=== PATIENT | female | born 1940 | race Asian ===

== ENCOUNTER 2024-08-11 10:31 | Inpatient (IN) | payer MEDICARE, OTHER, SELFPAY ==
[2024-08-10 19:00] VITALS: BP 98/59
[2024-08-10 21:07] LABS: Glucose - Point of Care 187 mg/dl (70-99)
[2024-08-10] MEDS: TYLENOL 650 MG PO (21:53)
--- NOTE | 2024-08-10 22:10 | ED.GENMED ---
History of Present Illness
General
Chief Complaint: Fall
Source: patient and family
Exam Limitations: none
Time Seen by Provider: 08/10/24 21:55
Nursing documentation reviewed up to this point in time: agreed with
History of Present Illness
History of Present Illness:
83-year-old female past medical history of hypertension hyperlipidemia presenting to the emergency department today after mechanical fall landing on the right knee unable to walk since this occurred just prior to arrival. Denies any additional
trauma or injuries.
Past History
Past History
ED Past Medical History: Cancer (colon cancer)
ED Past Surgical History: Bowel resection
Social History
Tobacco: Non-smoker
Alcohol: None
Drug: None
Living: with family
Employment: Retired
Review of Systems
Review of Systems
Allergies reviewed?: Yes
All Other Systems: ROS reviewed and negative except as documented in HPI and ROS
Phy Exam
Physical Exam
Physical Exam:
GENERAL: Alert , in no apparent distress
EYE: pupils equal and reactive
NECK: Supple, no significant adenopathy.
ENT: o/p clr, mmm.
CARDIAC: Regular rate and rhythm .
LUNGS: Clear breath sounds bilaterally, no acute respiratory distress, no wheezes/rales/rhonchi
ABDOMEN: Soft, without focal tenderness, no r/g, no cvat
NEUROLOGICAL: Alert and oriented, no focal neuro deficits
SKIN: Warm and dry, skin intact.
MUSCULOSKELETAL: Swelling and significant discomfort to the area of the infrapatellar region anteriorly. Increased discomfort any movement of the knee. No tenderness to the hip, pelvis. Mild tenderness to the foot and ankle but good range of
motion otherwise. Well perfused.
PSYCH: Normal and appropriate interaction.
Course
Orders/Labs/Results
Orders:
Orders
08/10/24 19:01
CR Knee- Right 4 Or More View* Urgent
Comment:
Reason For Exam: FALL
Foot, Right 3 View [CR Foot - Right Min 3 Views] Urgent
Comment:
Reason For Exam: FALL
08/10/24 21:51
Acetaminophen [Tylenol] 650 mg .ROUTE .STK-MED ONE
08/10/24 21:52
Acetaminophen [Tylenol] 650 mg PO NOW STA
08/10/24 22:10
BMP [Basic Metabolic Panel] Urgent
CBC/With Diff [Complete Blood Count/With Diff] Urgent
08/10/24 22:20
CT Lower Ext W/o Iv Cont Rt Urgent
Comment:
Reason For Exam: right tibia fx,
Knee Immobilizer Right-Treatme ONCE
Abnormal Lab Results
08/10/24
21:05
POC Glucose 187 H mg/dl
(70-99)
Vital Signs
Initial and Last Documented VS:
Initial Vital Signs
Temp Pulse Resp BP Pulse Ox
98.1 F 65 19 98/59 97
08/10/24 19:00 08/10/24 19:00 08/10/24 19:00 08/10/24 19:00 08/10/24 19:00
Last Documented Vital Signs
Temp Pulse Resp BP Pulse Ox
98.1 F 65 19 98/59 97
08/10/24 19:00 08/10/24 19:00 08/10/24 19:00 08/10/24 19:00 08/10/24 19:00
MDM/Problems Addressed
MDM/Problems Addressed:
83-year-old female presenting to the emergency department today with concerns of right-sided knee pain after mechanical fall prior to arrival. Unable to ambulate since. Neuro vastly intact on examination foot x-ray performed without evidence of
fracture knee x-ray showing proximal tibial fracture. Case discussed with orthopedics recommending CT scan that did not show any extension into the articular surface. Otherwise patient will need to be admitted for further management.
*Critical Care Note
Total Time (30-74mins, 75-104mins- exclusive of procedures): Not Applicable
ED Attending Note
-
Portions of this chart may have been created with voice recognition software.� Occasional wrong word or��sound alike� substitutions may have occurred due to the inherent limitations of voice recognition software.
Discharge Plan
Departure
Patient Disposition: Admit
Date of Disposition: 08/10/24
Time of Disposition: 23:00
Admit to: Med/Surg
Admit to doctor: Ramon
Presentation/result/management discussed w/ accepting MD/DO: Hospitalist
Patient with high blood pressure during this ER visit?: No
Condition: Good
Covid-19: Not Applicable
Discharge Problem:
Fracture of proximal end of left tibia
Prescriptions:
No Action
aspirin 81 MG tablet,delayed release (DR/EC)
81 mg PO DAILY
oxycodone-acetaminophen 5 MG/325 MG tablet
2 tab PO Q6HPRN PRN (Reason: pain)
carbamide peroxide [Ear Drops (carbamide peroxide)] 1 DROP drops
1 drp otic (ear) DAILY
ranitidine HCl [Taladine] 150 MG capsule
150 mg PO BID
calcium carbonate-vitamin D3 1 EACH tablet
1 tab PO DAILY
labetalol 200 MG tablet
200 mg PO BID Qty: 60 0RF
insulin glargine [Lantus U-100 Insulin] 1,000 UNITS/10 ML solution
15 units SC HS 0RF
torsemide 20 MG tablet
40 mg PO BID@0800,1600 Qty: 120 0RF
polyethylene glycol 3350 17 GRAMS powder in packet
17 grams PO BID 0RF
metolazone 5 MG tablet
2.5 mg PO MoWeFr@0800 Qty: 30 0RF
potassium chloride [Klor-Con M20] 20 MEQ tablet,ER particles/crystals
20 meq PO BID Qty: 60 0RF
pantoprazole 40 MG tablet,delayed release (DR/EC)
40 mg PO DAILY Qty: 30 0RF
diltiazem HCl 120 MG capsule,extended release 24hr
120 mg PO BID Qty: 60 0RF
hydralazine 50 MG tablet
100 mg PO BID Qty: 120 0RF
gabapentin 100 MG capsule
200 mg PO DAILY Qty: 30 0RF
dicyclomine 10 MG capsule
10 mg PO BID@0800,1700 Qty: 60 0RF
insulin aspart U-100 [Novolog FlexPen U-100 Insulin] 300 UNITS/3 ML insulin pen
3 units SC AC Qty: 0 0RF
daptomycin 500 MG/10 ML recon soln
400 mg IV Q48H Qty: 10 0RF
Rx Instructions:
Through 06/22
clopidogrel 75 MG tablet
75 mg PO DAILY Qty: 30 0RF
Referrals:
Cuba Wise MD [Family Provider] -
Interventions
Interventions:
*Risk Screen - Suicide Last Done: 08/10/24 19:00
*General Assessment Last Done: 08/10/24 19:00
*Neglect/Abuse Screening Last Done: 08/10/24 19:00
ED- Fall Risk Assessment Last Done: 08/10/24 20:53
ED-Musculoskeletal Assessment Last Done: 08/10/24 20:53
ED- Neurological Assessment Last Done: 08/10/24 20:53
Discharge Date and Time
Print Language: GREEK
[2024-08-10 22:57] LABS: % Basophils 0.1 % (0-2); % Eosinophils 0.8 % (0-6); % Immature Granulocytes 0.3 % (0-0.5); % Lymphocytes 12.7 % (20.5-51.1); % Monocytes 5.7 % (1.7-9.3); % Neutrophils 80.4 % (42.2-75.2); Absolute Eosinophils 0.1 10^3/uL (0-0.7); Absolute Lymphocytes 1.2 10^3/uL (1.2-3.4); Absolute Monocytes 0.5 10^3/uL (0.1-0.6); Absolute Neutrophils 7.7 10^3/uL (1.4-6.5); Hematocrit 29.4 % (37.0-47.0); Hemoglobin 9.8 g/dL (12.0-16.0); Mean Corp Hgb Conc. 33.3 g/dL (33.0-37.0); Mean Corpuscular Hgb 30.2 pg (27.0-31.0); Mean Corpuscular Volume 90.5 fL (81.0-99.0); Mean Platelet Volume 10.1 fL (7.4-10.4); Nucleated Red Blood Cells % 0 %; Platelet Count 182 10^3/uL (130-400); Red Blood Cell Count 3.25 10^6/uL (4.20-5.40); Red Cell Dist. Width 14.7 % (11.5-14.5); White Blood Cell Count 9.6 10^3/uL (4.8-10.8)
[2024-08-10 23:09] LABS: Blood Urea Nitrogen 55 mg/dl (7-17); Calcium 9.8 mg/dl (8.4-10.2); Carbon Dioxide 27 mmol/L (22-30); Chloride 105 mmol/L (98-107); Glucose 171 mg/dl (70-99); Potassium 4.4 mmol/L (3.5-5.1); Sodium 141 mmol/L (135-145)
--- NOTE | 2024-08-10 23:28 | HPS.HSE ---
Family Physician
-
Family Physician: Cuba Wise
Chief Complaint
-
Status post fall, left tibial fracture
History of Present Illness
This is a 83-year-old female with past medical history of insulin-dependent diabetes, PAD hypertension, CKD, hyperlipidemia who has mild ambulatory dysfunction at baseline presents to the emergency department after a mechanical fall.
She apparently was standing and trying to turn around without assist when she had pain in the knee and then went down. She essentially fell onto her right knee and was unable to ambulate afterwards. She did not strike her head. She had no
lightheadedness or dizziness. She had no confusion. She is on aspirin and Plavix for peripheral vascular disease.
In the emergency department blood pressure was 100/50 with a pulse of 65 satting 97% on room air. CBC was unremarkable. Electrolytes BUN/creatinine were at baseline. Slightly comminuted and mildly displaced fracture of the proximal tibia
involving the tibial tubercle with fracture lines extending to the medial tibial metaphysis and to the lateral epiphysis anteriorly and posteriorly with surrounding soft tissue edema.
ED d/w Ortho, Dr. Rodriges, recommends knee immobilizer.
Medical History
Past Medical History
Past Medical History: Reports Cancer (Colon cancer status post bowel resection.) and IDDM
Additional Past Medical History:
Peripheral vascular disease
CKD stage IV
Past Surgical History: Reports Bowel Resection
Social History
Tobacco: Non-smoker
Alcohol: None
Drug: None
Personal: Single
Living: With Family
Employment: Retired
Family History
Family History: Not pertinent
Allergies / Home Medications
Allergies reflects when Allergies were last updated in [employer].
Home Medications with original date entered in [employer]
Allergy/Medication List:
Allergies
Allergy/AdvReac Type Severity Reaction Status Date / Time
Latex, Natural Rubber Allergy Itching Verified 05/03/19 21:07
Home Medications
aspirin 81 mg tablet,delayed release 81 mg PO DAILY 05/03/19
calcium 500 mg (as carbonate)-vitamin D3 3.125 mcg (125 unit) tablet 1 tab PO DAILY 05/03/19
carbamide peroxide 6.5 % ear drops (Ear Drops (carbamide peroxide)) 1 drp otic (ear) DAILY 05/03/19
oxycodone-acetaminophen 5 mg-325 mg tablet 2 tab PO Q6HPRN PRN pain 05/03/19
ranitidine HCl 150 mg capsule (Taladine) 150 mg PO BID 05/03/19
clopidogrel 75 mg tablet 75 mg PO DAILY #30 tabs 06/14/19
daptomycin 500 mg intravenous solution 400 mg IV Q48H #10 vials 06/14/19
dicyclomine 10 mg capsule 10 mg PO BID@0800,1700 #60 caps 06/14/19
diltiazem HCl 120 mg capsule,extended release 24 hr 120 mg PO BID #60 caps 06/14/19
gabapentin 100 mg capsule 200 mg (2 x 100 mg) PO DAILY #30 caps 06/14/19
hydralazine 50 mg tablet 100 mg (2 x 50 mg) PO BID #120 tabs 06/14/19
insulin aspart U-100 100 unit/mL (3 mL) subcutaneous pen (Novolog FlexPen U-100 Insulin aspart) 3 units (0.03 mL) SC AC ##0 06/14/19
insulin glargine 100 unit/mL subcutaneous solution (Lantus U-100 Insulin) 15 units (0.15 mL) SC HS 06/14/19
labetalol 200 mg tablet 200 mg PO BID #60 tabs 06/14/19
metolazone 5 mg tablet 2.5 mg (1/2 x 5 mg) PO MoWeFr@0800 #30 tabs 06/14/19
pantoprazole 40 mg tablet,delayed release 40 mg PO DAILY #30 tabs 06/14/19
polyethylene glycol 3350 17 gram oral powder packet 17 grams PO BID 06/14/19
potassium chloride 20 mEq tablet,extended release(part/cryst) (Klor-Con M) 20 meq PO BID #60 tabs 06/14/19
torsemide 20 mg tablet 40 mg (2 x 20 mg) PO BID@0800,1600 #120 tabs 06/14/19
Review of Systems
-
History Source: Family
Constitutional: Reports No Symptoms
EENT: Reports No Symptoms
Respiratory: Reports No Symptoms
Cardiac: Reports No Symptoms
Abdomen/GI: Reports No Symptoms
: Reports No Symptoms
Musculoskeletal: Reports Joint Pain and Joint Swelling
Skin: Reports No Symptoms
Neurological: Reports No Symptoms
Hematologic/Lymphatic: Reports No Symptoms
Psych: Reports No Symptoms
Physical Exam
Vital Signs
Vital Signs
Temp Pulse Resp BP Pulse Ox
98.1 F 65 19 98/59 97
08/10/24 19:00 08/10/24 19:00 08/10/24 19:00 08/10/24 19:00 08/10/24 19:00
Physical Exam
General: Well Developed, Well Nourished and Pain
HEENT: NormoCephalic, Anicteric, Moist mucous membranes and Atraumatic
Respiratory: Clear
Cardiac: S1/S2 and Regular Rhythm
Breast: Deferred by me
GI: Soft, Non Tender, Non Distended and Normal Bowel Sounds
Rectal: Deferred by Provider
Genito-urinary: Deferred by me
Musculoskeletal: No Clubbing, No Cyanosis, Edema, Right Lower Extremity and Other (Right knee swelling, erythema and tenderness.)
Skin: Warm
Neuro: AO x 3
Hematologic/Lymphatic: No Lymphadenopathy
Psych: Calm
Laboratory Results
-
08/10/24 22:45
08/10/24 22:45
Data Reviewed
-
CT Scan: Report Reviewed by me
Lab Data: Labs Reviewed by me
Old Records: Reviewed
Impression/Plan
-
IMPRESSION:
Fall from standing height onto the right knee with subsequent right tibial fracture, minimally displaced. Not a surgical case.
PLAN:
1. Fracture
- admit to med/surg
- pain control and antiemetics
- knee immobilizer
- PT evaluation
- DVT PPX
2. DM II - recent weight loss on minimal insulin
- lantus 6 hs (8 at home)
- sliding scale insulin coverage
- continue jardiance
3. CKD - Creatinine slightly worse compared to last test but comparable to priors.
- monitor for now
- continue arb
- no diuretics
4. HTN
- bp meds with hold parameters
DVT PPX - SCD on left leg
Code Status - Full Code
[2024-08-11] VITALS (22 sets, daily range): BP systolic 128–202; BP diastolic 46–82; PULSE 57; BMI 25.5
[2024-08-11] MEDS: TYLENOL PO ×2 (01:15→04:01)
--- NOTE | 2024-08-11 03:37 | DOWNTIME ---
There was a [employer] Client Lamina Searcher Downtime on 08/11/2024 from 0200 to 08/11/2024 at 0325 . Downtime documentation of patient's care, including medication administrations, has been reconciled in the electronic record per guidelines. Refer to the
patient's paper chart under the miscellaneous tab to see printed paper medication records and downtime forms.
[2024-08-11] MEDS: NORVASC 5 MG PO ×2 (07:01→19:45)
[2024-08-11] MEDS: PEPCID 20 MG PO (07:02)
[2024-08-11] MEDS: PROTONIX 40 MG PO (07:02)
[2024-08-11] MEDS: PLAVIX 75 MG PO (07:02)
[2024-08-11 07:24] LABS: Glucose - Point of Care 148 mg/dl (70-99)
[2024-08-11] MEDS: NOVOLOG FLEXPEN-LOW RESISTANCE SC (07:32)
[2024-08-11] MEDS: TYLENOL 650 MG PO ×5 (08:13→23:11)
[2024-08-11] MEDS: APRESOLINE 25 MG PO ×2 (08:14→19:44)
[2024-08-11] MEDS: FEOSOL 325 MG PO ×2 (08:14→19:45)
[2024-08-11] MEDS: COZAAR 50 MG PO ×2 (08:15→19:44)
--- NOTE | 2024-08-11 09:12 | W.PN.HOSP.TC ---
Today's Communication/Plan
-
PT evaluation
Ortho evaluation
Rehab placement
Assessment / Plan
Assessment / Plan
Used language line iPad rnp [id number]
83-year-old female presented to the hospital with kneeling down, on twisting per daughter. . She stated that she usually has generalized weakness of her knees and then went down. Denies any chest pain, shortness of breath or palpitations.
On examination awake alert and comfortable
Cardiovascular system S1-S2 appreciated. ssm at apx
Chest clear to auscultation
Abdomen soft and nontender
Lumbar area-mild tenderness with palpation
Right lower extremity on an immobilizer
No pedal edema
Neurovascular checks of the bilateral feet are stable
CT-proximal right tibia fracture with lines extending to the medial tibial metaphysis and to the lateral epiphysis anteriorly and posteriorly.
# Proximal tibia fracture-likely traumatic and osteoporotic
Orthopedic evaluation
Nonsurgical management per report
Raloxifene as outpatient
Pain control
PT evaluation
# Multidrug-resistant hypertension-continue amlodipine, hydralazine 25 mg twice daily, labetalol 1 mg daily, losartan 50 mg twice daily, torsemide 10 mg every 48 hours
# Hyperlipidemia-continue statin
# Anemia-likely secondary to CKD. Continue p.o. iron.
# Diabetes-continue Jardiance Lantus 5 to 7 units at night and NovoLog insulin 2-4 units at night as home meds continue Lantus, Jardiance and sliding scale here.
# CKD stage III-continue Jardiance.
# History of colon cancer with surgery in 2008 at [place].
# History of Hepatitis C status posttreatment.
# Dementia- ( ST Memory loss per daughter) Continue Aricept.
# Peripheral vascular disease-with history of prior stents. Stent placed in 2 stets in left leg [place] 2018-continue cilostazol, Plavix and statin
# Neuropathy - Diabetic- Duloxetine.
# Glaucoma
# DVT prophylaxis-subcutaneous heparin
# Full code
Spoke to daughter and updated. She is hoping that patient will go to rehab.
She also stated that patient would not eat a diabetic diet therefore changed to regular diet-2 g sodium. I also discussed with her that if sugars go up I may have to change back to diabetic diet.
Anticipated Discharge: Within 24 hours
Subjective/Interval History
-
Date of Service: August 11, 2024
Objective Data
-
Labs:
Laboratory Results
08/10/24
22:45
WBC 9.6
Hgb 9.8 L
Hct 29.4 L
Plt Count 182
Sodium 141
Potassium 4.4
Chloride 105
Carbon Dioxide 27
BUN 55 H
Creatinine 1.9 H
Glucose 171 H
Calcium 9.8
Vital Signs:
Vital Signs
Temp Pulse Resp BP Pulse Ox
98.1 F 66 21 197/51 100
08/10/24 19:00 08/11/24 07:01 08/11/24 06:15 08/11/24 07:01 08/11/24 03:30
[2024-08-11] MEDS: PLETAL 50 MG PO ×2 (10:06→19:45)
[2024-08-11] MEDS: TRANDATE 100 MG PO (10:06)
[2024-08-11] MEDS: FARXIGA 10 MG PO (10:06)
[2024-08-11] MEDS: COLACE PO (11:04)
[2024-08-11] MEDS: SENOKOT PO (11:04)
[2024-08-11] MEDS: MIRALAX PO (11:04)
[2024-08-11 12:04] LABS: Glucose - Point of Care 340 mg/dl (70-99)
--- NOTE | 2024-08-11 12:20 | CM ---
Patient is now inpatient. IMM not given yet.
--- NOTE | 2024-08-11 12:36 | CM ---
CM reviewed chart. Patient here after a fall. A video veterinarian laboratory animal care, for [place], was used. ID# [id number]. Name: Kim. Patient lives at home with her daughter in [facility]. She does not drive, daughter provides transportation. She needs assistance
with walking. She owns a cane and walker. 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 She denies any +SDOHs. She has an active PCP and pharmacy. Patient was initially obervations. MILLER form was explained to patient. She verbalized understanding and signed form. A
copy was given to her.
ANTICPATED DISCHARGE DISPO: Home with daughter, when medically cleared.
--- NOTE | 2024-08-11 12:42 | W.PN.UPDATE ---
Update Note
Progress Note Update
Patient seen this morning and chart reviewed. Patient apparently does not speak Italian and will discuss with family.
Imaging right knee extra articular tibial metaphyseal fracture, minimal displacement with tuberosity fracture
This is a somewhat unstable fracture pattern and I think would likely benefit from fixation.
I will reach out to the family to discuss surgical vs non surgical treatment
Would keep NWB in [facility] for now.
Formal consult note to follow.
[2024-08-11] MEDS: NOVOLOG FLEXPEN-LOW RESISTANCE 4 UNITS SC (12:57)
[2024-08-11 13:19] LABS: Iron 91 ug/dl (37-170)
[2024-08-11 13:28] LABS: Percent Saturation 37 % (20-50); Total Iron Binding Capacity 242 ug/dl (265-497)
[2024-08-11 13:32] LABS: Vitamin B12 693 pg/ml (239-931)
[2024-08-11 14:28] LABS: Glycohemoglobin (HgbA1c) 7.5 % (4.0-5.6)
[2024-08-11] MEDS: HEPARIN 5000 UNITS SC ×2 (16:34→23:12)
[2024-08-11 17:31] LABS: Glucose - Point of Care 262 mg/dl (70-99)
[2024-08-11] MEDS: NOVOLOG FLEXPEN-LOW RESISTANCE 3 UNITS SC (17:40)
--- NOTE | 2024-08-11 17:58 | CON.ORTHO ---
Consultation - Orthopedics
History
HPI: 83-year-old female presents emergency department after sustaining a fall at home with complaints of right knee pain and inability to bear weight. She was subsequently diagnosed with a right extra-articular proximal tibia metaphyseal fracture
with associated tibial tuberosity fracture. She was admitted to the hospital service and orthopedics was consulted for further evaluation and treatment. Patient is apparently Syriac speaking only and majority of history was taken from chart review
as she was unable to provide meaningful history. Patient reportedly with a history of diabetes hypertension chronic kidney disease. She reportedly uses a combination of a cane a walker at baseline. She does point to her right knee indicating
where she is having pain however.
Allergies / Home Medications
Past medical history: Diabetes, peripheral arterial disease, hypertension, chronic kidney disease, remote history of colon cancer
Past surgical history: Bowel resection
Family history: Not pertinent
Social history: Lives at home with her daughter
Allergy/AdvReac Type Severity Reaction Status Date / Time
Latex, Natural Rubber Allergy Itching Verified 05/03/19 21:07
�Medication �Instructions �Recorded
clopidogrel 75 mg tablet 75 mg PO DAILY #30 tabs 06/14/19
pantoprazole 40 mg tablet,delayed 40 mg PO DAILY #30 tabs 06/14/19
release
amlodipine 5 mg tablet 5 mg PO BID Blood Pressure 08/10/24
ascorbic acid (vitamin C) 500 mg 500 mg PO BID Supplement 08/10/24
tablet (Vitamin C)
calcium 500 mg (as 1 tab PO BID Supplement 08/10/24
carbonate)-vitamin D3 5 mcg (200
unit) tablet (Calcium 500 + D)
cholecalciferol (vitamin D3) 125 125 mcg PO DAILY Supplement 08/10/24
mcg (5,000 unit) tablet (Vitamin
D3)
cilostazol 50 mg tablet 50 mg PO BID peripheral artery 08/10/24
disease
donepezil 5 mg tablet 5 mg PO HS memory/cognition 08/10/24
duloxetine 20 mg capsule,delayed 20 mg PO HS depression/pain 08/10/24
release
empagliflozin 10 mg tablet 10 mg PO DAILY diabetes 08/10/24
(Jardiance)
famotidine 20 mg tablet 20 mg PO BID Gastrointestinal Issue 08/10/24
ferrous sulfate 325 mg (65 mg 325 mg PO BID Supplement 08/10/24
iron) tablet
fluticasone propionate 50 1 spray intranasal DAILYPRN PRN 08/10/24
mcg/actuation nasal congestion
spray,suspension
hydralazine 25 mg tablet 25 mg PO BID Blood Pressure 08/10/24
insulin aspart (niacinamide) 2 - 4 sliding scale dose SC AC 08/10/24
(U-100) 100 unit/mL subcutaneous Diabetes
solution (Fiasp U-100 Insulin)
insulin glargine 100 unit/mL 5 - 7 units SC HS Diabetes 08/10/24
subcutaneous solution (Lantus
U-100 Insulin)
labetalol 100 mg tablet 100 mg PO DAILY Blood Pressure 08/10/24
levocetirizine 5 mg tablet 5 mg PO DAILYPRN PRN allergies 08/10/24
lidocaine 4 % topical patch 1 patch topical DAILYPRN PRN 08/10/24
legs/back
losartan 50 mg tablet 50 mg PO BID Blood Pressure 08/10/24
raloxifene 60 mg tablet 60 mg PO HS osteoporosis 08/10/24
rosuvastatin 5 mg tablet 5 mg PO HS High Cholesterol 08/10/24
torsemide 10 mg tablet 10 mg PO Q48H Fluid 08/10/24
Retention/Swelling
Vital Signs / Lab Results
Temp Pulse Resp BP Pulse Ox
98.3 F 60 18 128/46 96
08/11/24 15:05 08/11/24 15:05 08/11/24 15:05 08/11/24 15:05 08/11/24 15:05
08/10/24 22:45
08/10/24 22:45
10 point review systems reviewed in chart and negative unless otherwise stated
General: Pleasant, no acute distress at rest in bed supine
Musculoskeletal right lower extremity
Knee immobilizer in place
Skin visualized, no erythema or ecchymotic staining, moderate swelling proximal tibia, leg is soft and compressible,
There is actually very minimal palpable knee effusion
Patient is able to actually hold a straight leg raise for me on examination
There is visible grimace and pain with palpation over the tibial tuberosity as well as the proximal tibial metaphyseal region
Patient is able to spontaneously move toes and dorsiflex and plantarflex ankle
Brisk cap refill
Unable to accurately assess sensation
No other areas of bony tenderness palpation or crepitus of long bones and joints and tertiary exam
Diagnostic studies
X-rays of right knee as well as CT scan independently viewed by myself. There is an oblique extra-articular metaphyseal proximal tibia fracture that begins proximal laterally and distal medial. There is an associated mildly displaced tibial
tuberosity fracture
Assessment / Plan
83-year-old female multiple medical comorbidities status post fall with extra-articular proximal tibia metaphyseal fracture with associated tibial tuberosity fracture. Patient is actually able to straight leg raise today and does have an intact
extensor mechanism despite the mildly displaced tibial tuberosity. I was able to call the patient's daughter and had a long discussion on the telephone with her regarding diagnosis and treatment options. We discussed both surgical nonsurgical
options. I did express to the patient that this is likely somewhat of an unstable fracture pattern and I would have concerns about this displacing with conservative treatment. I did discuss this with several trauma colleagues who recommended
consideration of surgical intervention stabilization. We did also discussed nonoperative treatment that would include temporary mobilization and likely casting. Daughter would like to give some thought discussed this with the mother and her family
members. Daughter does report that she does ambulate at baseline at home really without assistive devices although she is supposed to be using a cane or walker typically. She does report that her family physician is concerned about her early
dementia but she feels like her mother has fairly good memory. Again she will discuss this further and probably touch base with her later tonight or tomorrow regarding definitive treatment. Ultimate treatment to be determined including potential
timing of surgery.
Nonweightbearing right lower extremity in knee immobilizer
Pain control
Medical management per primary team
I will touch base with family regarding definitive treatment plan.
Please reach out any questions or concerns
[2024-08-11] MEDS: SENOKOT 17.2 MG PO (19:45)
[2024-08-11] MEDS: COLACE 100 MG PO (19:46)
[2024-08-11 21:08] LABS: Glucose - Point of Care 253 mg/dl (70-99)
[2024-08-11] MEDS: CRESTOR 5 MG PO (21:20)
[2024-08-11] MEDS: EVISTA 60 MG PO (21:20)
[2024-08-11] MEDS: CYMBALTA DELAYED RELEASE 20 MG PO (21:21)
[2024-08-11] MEDS: ZYRTEC 5 MG PO (21:21)
[2024-08-11] MEDS: LANTUS 0.07 UNITS SC (21:21)
[2024-08-11] MEDS: ARICEPT 5 MG PO (21:21)
[2024-08-12] MEDS: TYLENOL PO ×4 (03:05→23:03)
[2024-08-12 07:15] LABS: Hematocrit 27.9 % (37.0-47.0); Hemoglobin 8.9 g/dL (12.0-16.0); Mean Corp Hgb Conc. 31.9 g/dL (33.0-37.0); Mean Corpuscular Hgb 29.8 pg (27.0-31.0); Mean Corpuscular Volume 93.3 fL (81.0-99.0); Mean Platelet Volume 10.2 fL (7.4-10.4); Platelet Count 155 10^3/uL (130-400); Red Blood Cell Count 2.99 10^6/uL (4.20-5.40); White Blood Cell Count 7.6 10^3/uL (4.8-10.8)
[2024-08-12 07:20] VITALS: BP 154/59
[2024-08-12 07:34] LABS: Blood Urea Nitrogen 51 mg/dl (7-17); Calcium 9.4 mg/dl (8.4-10.2); Carbon Dioxide 27 mmol/L (22-30); Chloride 108 mmol/L (98-107); Estimated Creatinine Clearance 19 ml/min; Glucose 163 mg/dl (70-99); Potassium 4.3 mmol/L (3.5-5.1); Sodium 143 mmol/L (135-145); eGFR 27.96
[2024-08-12 09:27] LABS: Glucose - Point of Care 162 mg/dl (70-99)
--- NOTE | 2024-08-12 09:36 | W.PN.UPDATE ---
Update Note
Progress Note Update
Had a long discussion with the patient and daughter at bedside. Manager Customer services were utilized. We had a risks benefits discussion regarding her right proximal tibia fracture. We discussed with surgical nonsurgical options. After discussing
risks benefits alternatives, patient elected to proceed with open reduction internal fixation right proximal tibia metaphyseal fracture in addition to tibial tuberosity fracture. Did obtain verbal consent from both the patient and her daughter. I
will plan to obtain written informed consent prior to surgery.
Nonweightbearing right lower extremity knee immobilizer
N.p.o. at midnight
Please hold anticoagulation in preparation for OR in a.m.
Plan: 2 OR in a.m. for operative fixation right proximal tibia fracture pending or availability and medical clearance
Please reach out questions or concerns
[2024-08-12] MEDS: FARXIGA 10 MG PO (10:22)
[2024-08-12] MEDS: PLAVIX PO ×2 (10:22→10:45)
[2024-08-12] MEDS: PLETAL PO ×2 (10:22→11:18)
[2024-08-12] MEDS: TRANDATE 100 MG PO (10:22)
[2024-08-12] MEDS: PROTONIX 40 MG PO (10:22)
[2024-08-12] MEDS: COZAAR 50 MG PO ×2 (10:22→20:17)
[2024-08-12] MEDS: APRESOLINE 25 MG PO ×2 (10:23→20:17)
[2024-08-12] MEDS: SENOKOT 17.2 MG PO ×2 (10:23→20:18)
[2024-08-12] MEDS: MIRALAX 17 GRAMS PO (10:24)
[2024-08-12] MEDS: NORVASC 5 MG PO ×2 (10:24→20:17)
[2024-08-12] MEDS: COLACE 100 MG PO ×2 (10:24→20:17)
[2024-08-12] MEDS: TYLENOL 650 MG PO ×2 (10:24→18:21)
[2024-08-12] MEDS: HEPARIN SC ×2 (10:24→11:56)
[2024-08-12] MEDS: FEOSOL 325 MG PO ×2 (10:25→20:17)
[2024-08-12] MEDS: NOVOLOG FLEXPEN-LOW RESISTANCE 1 UNITS SC (10:25)
--- NOTE | 2024-08-12 10:45 | W.PN.HOSP.TC ---
Addendum entered and electronically signed by Sabina Carlos MD 08/12/24 14:17:
# CKD 4
Original Note:
Today's Communication/Plan
-
see A/P
Assessment / Plan
Assessment / Plan
HPI: 83-year-old female p/w fall. She stated that she usually has generalized weakness of her knees and then went down.
CT-proximal right tibia fracture with lines extending to the medial tibial metaphysis and to the lateral epiphysis anteriorly and posteriorly.
A/P:
# Proximal Right tibia fracture-likely traumatic and osteoporotic
Orthopedic on board, recc Nonweightbearing right lower extremity with knee immobilizer, plan for operative fixation right proximal tibia fracture
Pt is intermediate risk for low to intermediate risk surgery. Intermediate risk due to elderly age and previous PAD. She is medically stable and optimized. Benefit of procedure outweighs risk. Proceed with caution.
Pain control with Tylenol and oxycodone
Check vit D level
# Multidrug-resistant hypertension
continue amlodipine, hydralazine 25 mg twice daily, labetalol 1 mg daily, losartan 50 mg twice daily
NIGHT CUSTODIAN torsemide 10 mg every 48 hours has not been resumed
# Hyperlipidemia
continue statin
# Anemia-likely secondary to CKD.
Continue p.o. iron.
# IDDM
Hold Jardiance
Hold Lantus HS given NPO status prior to OR
cover with ISS
# CKD stage III
Cr 1.8 at baseline
# History of colon cancer with surgery in 2008 at [place].
# History of Hepatitis C status posttreatment.
# Dementia
ST Memory loss per daughter
Continue Aricept.
# Peripheral vascular disease with history of prior stents. Stent placed in 2 stets in left leg [place] 2017
hold NIGHT CUSTODIAN plavix and cilostazol
continue statin
# Diabetic Neuropathy on Duloxetine.
# Glaucoma
DVT prophylaxis- hold prior to OR
Full code
DW RN
DW daughter on the phone
Anticipated Discharge: > 48 hours
Subjective/Interval History
-
Date of Service: August 12, 2024
Objective Data
-
Labs:
Laboratory Results
08/12/24
06:36
WBC 7.6
Hgb 8.9 L
Hct 27.9 L
Plt Count 155
Sodium 143
Potassium 4.3
Chloride 108 H
Carbon Dioxide 27
BUN 51 H
Creatinine 1.8 H
Glucose 163 H
Calcium 9.4
Vital Signs:
Vital Signs
Temp Pulse Resp BP Pulse Ox
36.6 C 62 14 154/59 96
08/12/24 07:20 08/12/24 07:20 08/12/24 07:20 08/12/24 07:20 08/12/24 07:20
I&O
08/11/24 08/12/24 08/13/24
06:59 06:59 06:59
Intake Total 440 / 440
Balance 440 / 440
Review of Systems
-
Unable to obtain full review of systems at this time due to: Language Barrier
All other systems: Reviewed and negative
Physical Exam
-
General: Well Developed, Well Nourished, No Apparent Distress, Comfortable and Conversant; Negative Respiratory Distress
HEENT: Normocephalic, Atraumatic, Nose Appears Normal and Ears Appear Normal; Negative Oxygen
Respiratory: Clear to Auscultation and Non Labored Respirations; Negative Accessory Resp Muscle Use
Cardiac: Regular Rhythm and S1/S2
GI: Soft, Nontender, Nondistended and Normal Bowel Sounds
Musculoskeletal: Other (R leg in immobilizer)
Skin: Warm and Dry
Neuro: Awake, Alert and Oriented
Psych: Calm
Data Reviewed
-
Diagnostic Radiology: Image personally visualized and interpreted and Report Reviewed by me
Labs: Labs Reviewed by me
[2024-08-12 12:33] LABS: Vitamin D, 25-OH*** 82.7 ng/mL (30-80)
--- NOTE | 2024-08-12 13:12 | PN.CDI ---
CDI
- -
CDI:
Physician Documentation Request
Admit Date: 08/11/24 10:31
Dear Doctor Terrance,
Please review the following and provide your response in the progress notes.
Clinical Indicators:
- per H&P CKD 4
- 08/12 PN 'CKD stage III...Cr 1.8 at baseline'
- Current admission labs:
Laboratory Tests
08/10/24 08/12/24
22:45 06:36
Creatinine 1.9 H 1.8 H
eGFR 26.20 27.96
Please clarify which of the following accurately represents the patient's renal status:
CKD 3
CKD 4
Other (please specify)
Stages of Chronic Kidney Disease*
Level Description GFR
G1 Normal or High >90
G2 Mildly decreased 60-89
G3a Mildly to moderately decreased 45-59
G3b Moderately to severely decreased 30-44
G4 Severely decreased 15-29
G5 Kidney failure <15
Use of terms such as suspected, likely, concern for, or probable (associated with a specific diagnosis that is being evaluated, monitored, or treated as if it exists) are acceptable and can be coded in the inpatient setting, when documented at the
time of discharge.
Thank you,
Shawn Madrigal RN
CDI Specialist
Please use your independent medical judgment in providing your response.
*Source: Kidney Disease: Improving Global Outcomes (KDIGO) 2012
[2024-08-12 15:40] LABS: Glucose - Point of Care 147 mg/dl (70-99)
[2024-08-12 15:45] VITALS: BP 135/51
[2024-08-12] MEDS: NOVOLOG FLEXPEN-LOW RESISTANCE SC ×2 (15:45→17:59)
[2024-08-12] MEDS: MILK OF MAGNESIA 30 ML PO (20:31)
[2024-08-12] MEDS: CRESTOR 5 MG PO (21:04)
[2024-08-12] MEDS: CYMBALTA DELAYED RELEASE 20 MG PO (21:04)
[2024-08-12] MEDS: ARICEPT 5 MG PO (21:04)
[2024-08-12] MEDS: ZYRTEC 5 MG PO (21:04)
[2024-08-12] MEDS: EVISTA 60 MG PO (21:04)
[2024-08-12 21:34] LABS: Glucose - Point of Care 232 mg/dl (70-99)
[2024-08-12 23:00] VITALS: BP 156/68
[2024-08-13] VITALS (21 sets, daily range): BP systolic 151–213; BP diastolic 44–83
[2024-08-13] MEDS: TYLENOL PO ×3 (05:46→16:34)
[2024-08-13 06:40] LABS: Glucose - Point of Care 210 mg/dl (70-99)
[2024-08-13 06:44] LABS: Hematocrit 29.4 % (37.0-47.0); Hemoglobin 9.5 g/dL (12.0-16.0); Mean Corp Hgb Conc. 32.3 g/dL (33.0-37.0); Mean Corpuscular Hgb 30.1 pg (27.0-31.0); Mean Platelet Volume 9.8 fL (7.4-10.4); Platelet Count 158 10^3/uL (130-400); Red Blood Cell Count 3.16 10^6/uL (4.20-5.40); Red Cell Dist. Width 14.7 % (11.5-14.5); White Blood Cell Count 7.6 10^3/uL (4.8-10.8)
[2024-08-13 07:05] LABS: Blood Urea Nitrogen 47 mg/dl (7-17); Calcium 9.5 mg/dl (8.4-10.2); Carbon Dioxide 30 mmol/L (22-30); Chloride 105 mmol/L (98-107); Estimated Creatinine Clearance 19 ml/min; Glucose 200 mg/dl (70-99); Potassium 4.8 mmol/L (3.5-5.1); Sodium 142 mmol/L (135-145); eGFR 27.96
--- NOTE | 2024-08-13 09:05 | PTCARENOTE ---
Pt went to OR shortly after shift change. Report given, Pt has been NPO, wipes done and sheets changed. Daughter at bedside.
--- NOTE | 2024-08-13 11:15 | OR.RPT ---
Operative Report
Operative Report
Anesthesia Type:
General with post op peripheral block
Operative Indications:
Unstable right proximal tibial metaphyseal fracture, tibial tuberosity fracture with displacement
Operative Findings :
Same, fairly poor bone quality
Complications:
None
Implants:
Two 4.75 Arthrex swivel locks, [place] axsos Ti3 locking 4.0mm proximal tibial plate
Procedure and Technique:
Open reduction internal fixation right proximal metaphyseal tibia fracture, open reduction total fixation of tibial tuberosity fracture
INDICATIONS FOR PROCEDURE:
The patient is an active 83-year-old female sustained a mechanical fall was ultimately diagnosed with a minimally displaced proximal metaphyseal tibia fracture as well as a displaced tibial tuberosity fracture. I had a long discussion with the
patient as well as her daughter regarding diagnosis and treatment options. Given the unstable nature of the fracture pattern, after discussion we mutually agreed to proceed with open reduction total fixation. Patient was able to weakly straight
leg raise however with the displaced tibial tuberosity fracture, there is also concern regarding her extensor mechanism remaining competent without operative fixation. We discussed risks benefits and alternatives of surgery. We discussed the usual
expected perioperative postoperative course. After discussion written informed consent was obtained.
OPERATIVE PROCEDURE:
Patient was seen identified the preoperative holding area. All questions were addressed and answered. Operative extremity was marked and she is taken to the operating room where general anesthesia was administered. She was placed supine position
radiolucent table. Operative extremities prepped and draped in normal sterile fashion. Nonsterile tourniquet was applied. Timeout was performed again identifying the correct operative extremity. Preoperative antibiotics were addressed.
Curvilinear incision was made over the proximal lateral tibia. Sharp dissection was carried through skin subcutaneous tissues. Anterior compartment fascia was sharply incised and bluntly dissected off of the proximal lateral tibia. The tibial
tuberosity was also dissected fracture site was identified. Decision was made to proceed with operative fixation of the metaphyseal fracture first. Appropriately sized proximal lateral locking plate was placed and secured initially with bicortical
fixation in the diaphysis. Locking screws were then placed proximally to capture the proximal fracture. Given her poor bone quality, an additional locking screw was placed bicortically in the diaphysis. Locking kickstand screw was also placed.
The fracture was stressed under fluoroscopic guidance and found to be quite stable. Attention was then turned to the tibial tuberosity fracture. The fracture site was debrided and given the poor bone quality and small size of the fracture, there
was concern about using a screw for fixation. I decision was made to proceed with suture anchor fixation. 1.3 mm suture tape was then used x 2 to Krak�w stitch the patella tendon. These were then placed into two 4.75 mm swivel locks in the tibia
proximally. When tapping for the second anchor there was noted to be small fracture propagated from the anchor site. However the anchor was quite secure when taken through motion. The knee was taken through range of motion 0 to 90 degrees and
tibial tuberosity fracture was actually found to be fairly stable and did not gap with motion. Assessment of extent surgery wound was copious irrigated normal seen a solution. Tourniquet had been deflated. Wound was closed in layered fashion
utilizing #1 Vicryl for deep fascial layer, 2-0 Vicryl for subcutaneous layer and everett for skin. Sterile dressing was applied consisting of Xeroform 4 x 4 gauze ABD Webril. Rafy bandage was applied and patient was placed into a knee immobilizer.
Anesthesia was reversed and she was taken to PACU in stable condition.
Postoperative plans will include nonweightbearing to the operative extremity and knee immobilizer. We will advance her motion quite slowly given the poor bone quality and fixation of her extensor mechanism. Recommend DVT prophylaxis consisting of
renally dosed Lovenox for 28 days daily. Plan to see patient back in 2 weeks for repeat evaluation repeat radiographs plan removal of everett
Disposition:
PACU stable condition
[2024-08-13 11:28] LABS: Glucose - Point of Care 204 mg/dl (70-99)
[2024-08-13] MEDS: NOVOLOG vial 100 UNITS SC (11:32)
[2024-08-13] MEDS: TRANDATE 5 MG IV ×2 (11:34→14:42)
[2024-08-13] MEDS: SUBLIMAZE 25 MCG IV ×2 (11:40→12:08)
--- NOTE | 2024-08-13 12:02 | W.PN.HOSP.TC ---
Today's Communication/Plan
-
see A/P
Assessment / Plan
Assessment / Plan
HPI: 83-year-old female p/w fall. She stated that she usually has generalized weakness of her knees and then went down.
CT-proximal right tibia fracture with lines extending to the medial tibial metaphysis and to the lateral epiphysis anteriorly and posteriorly.
A/P:
# Proximal Right tibia fracture-likely traumatic and osteoporotic
Orthopedic on board, recc Nonweightbearing right lower extremity with knee immobilizer
s/p Open reduction internal fixation right proximal metaphyseal tibia fracture, open reduction total fixation of tibial tuberosity fracture on 08/13/2024
Pain control with Tylenol and oxycodone
Noted vit D level high at 82
DVT ppx with HSQ to start 08/14
# Multidrug-resistant hypertension
continue amlodipine, hydralazine 25 mg twice daily, labetalol 1 mg daily, losartan 50 mg twice daily
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
# Hyperlipidemia
continue statin
# Anemia-likely secondary to CKD.
Continue p.o. iron.
# IDDM
Hold Jardiance
resume Lantus 5 units HS
cover with ISS
# CKD stage III
Cr 1.8 at baseline
# History of colon cancer with surgery in 2008 at [place].
# History of Hepatitis C status posttreatment.
# Dementia
ST Memory loss per daughter
Continue Aricept.
# Peripheral vascular disease with history of prior stents. Stent placed in 2 stets in left leg [place] 2017
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
continue statin
# Diabetic Neuropathy on Duloxetine.
# Glaucoma
DVT prophylaxis- restart HSQ 08/14
Full code
DW ortho
DW daughter on the phone
Anticipated Discharge: 24 - 48 hours
Subjective/Interval History
-
Date of Service: August 13, 2024
Objective Data
-
Labs:
Laboratory Results
08/13/24
06:20
WBC 7.6
Hgb 9.5 L
Hct 29.4 L
Plt Count 158
Sodium 142
Potassium 4.8
Chloride 105
Carbon Dioxide 30
BUN 47 H
Creatinine 1.8 H
Glucose 200 H
Calcium 9.5
Vital Signs:
Vital Signs
Temp Pulse Resp BP Pulse Ox
37.4 C 79 18 207/72 100
08/13/24 11:16 08/13/24 11:34 08/13/24 11:30 08/13/24 11:34 08/13/24 11:30
I&O
08/12/24 08/13/24 08/14/24
06:59 06:59 06:59
Intake Total 440 / 440 1080 / 1080
Balance 440 / 440 1080 / 1080
Review of Systems
-
Unable to obtain full review of systems at this time due to: Language Barrier
All other systems: Reviewed and negative
Physical Exam
-
General: Well Developed, Well Nourished, No Apparent Distress, Comfortable and Conversant; Negative Respiratory Distress
HEENT: Normocephalic, Atraumatic, Nose Appears Normal and Ears Appear Normal; Negative Oxygen
Respiratory: Clear to Auscultation and Non Labored Respirations; Negative Accessory Resp Muscle Use
Cardiac: Regular Rhythm and S1/S2
GI: Soft, Nontender, Nondistended and Normal Bowel Sounds
Musculoskeletal: Other (R leg in immobilizer)
Skin: Warm and Dry
Neuro: Awake, Alert and Oriented
Psych: Calm
Data Reviewed
-
Diagnostic Radiology: Image personally visualized and interpreted and Report Reviewed by me
Labs: Labs Reviewed by me
[2024-08-13] MEDS: ZOFRAN 4 MG IV (12:45)
[2024-08-13] MEDS: SUBLIMAZE 50 MCG IV (12:56)
[2024-08-13 13:15] LABS: Glucose - Point of Care 198 mg/dl (70-99)
[2024-08-13] MEDS: NOVOLOG vial 1 UNITS SC (13:27)
[2024-08-13] MEDS: ANCEF 5 IV (15:28)
--- NOTE | 2024-08-13 16:15 | PTCARENOTE ---
Pt arrived to [facility] from PACU s/p R ORIF proximal tibia fracture. Pt Swedish speaking, spoke via machine trimmer. Pt AAOx3, NV intact, R knee in knee immobilizer. Pt oriented to call orellana and room, bed locked and in lowest position, call orellana within
reach.
[2024-08-13] MEDS: COZAAR PO (16:33)
[2024-08-13] MEDS: FEOSOL PO (16:33)
[2024-08-13] MEDS: COLACE PO (16:33)
[2024-08-13] MEDS: APRESOLINE PO (16:33)
[2024-08-13] MEDS: PEPCID PO (16:34)
[2024-08-13] MEDS: TRANDATE PO (16:34)
[2024-08-13] MEDS: PROTONIX PO (16:34)
[2024-08-13] MEDS: MIRALAX PO (16:34)
[2024-08-13] MEDS: SENOKOT PO (16:34)
[2024-08-13] MEDS: NORVASC PO (16:34)
[2024-08-13] MEDS: NSS 1000 IV (17:56)
[2024-08-13] MEDS: TYLENOL 650 MG PO ×2 (17:56→21:03)
[2024-08-13] MEDS: NOVOLOG FLEXPEN-LOW RESISTANCE 1 UNITS SC (17:58)
[2024-08-13 18:33] LABS: Glucose - Point of Care 191 mg/dl (70-99)
[2024-08-13] MEDS: ROXICODONE 5 MG PO (20:31)
[2024-08-13] MEDS: NORVASC 5 MG PO (21:03)
[2024-08-13] MEDS: SENOKOT 17.2 MG PO (21:03)
[2024-08-13] MEDS: COZAAR 50 MG PO (21:03)
[2024-08-13] MEDS: APRESOLINE 25 MG PO (21:03)
[2024-08-13] MEDS: LANTUS 0.05 UNITS SC (21:04)
[2024-08-13] MEDS: FEOSOL 325 MG PO (21:04)
[2024-08-13] MEDS: COLACE 100 MG PO (21:04)
[2024-08-13 21:07] LABS: Glucose - Point of Care 301 mg/dl (70-99)
[2024-08-13] MEDS: EVISTA 60 MG PO (22:49)
[2024-08-13] MEDS: ARICEPT 5 MG PO (22:49)
[2024-08-13] MEDS: ZYRTEC 5 MG PO (22:50)
[2024-08-13] MEDS: CRESTOR 5 MG PO (22:50)
[2024-08-13] MEDS: CYMBALTA DELAYED RELEASE 20 MG PO (22:50)
[2024-08-14] MEDS: ANCEF 5 IV (00:21)
[2024-08-14] MEDS: TYLENOL PO (00:25)
[2024-08-14 02:53] VITALS: BP 160/56
[2024-08-14] MEDS: TYLENOL 650 MG PO ×5 (04:10→20:30)
[2024-08-14] MEDS: NSS 1000 IV (04:12)
[2024-08-14 05:11] LABS: Hemoglobin 7.6 g/dL (12.0-16.0); Mean Corp Hgb Conc. 31.7 g/dL (33.0-37.0); Mean Corpuscular Hgb 30.3 pg (27.0-31.0); Mean Corpuscular Volume 95.6 fL (81.0-99.0); Mean Platelet Volume 10.2 fL (7.4-10.4); Platelet Count 159 10^3/uL (130-400); Red Blood Cell Count 2.51 10^6/uL (4.20-5.40)
[2024-08-14 05:33] LABS: Blood Urea Nitrogen 49 mg/dl (7-17); Calcium 8.1 mg/dl (8.4-10.2); Carbon Dioxide 28 mmol/L (22-30); Chloride 107 mmol/L (98-107); Estimated Creatinine Clearance 20 ml/min; Glucose 194 mg/dl (70-99); Potassium 5.1 mmol/L (3.5-5.1); Sodium 141 mmol/L (135-145); eGFR 29.94
[2024-08-14 07:35] VITALS: BP 164/54
[2024-08-14] MEDS: FEOSOL 325 MG PO ×2 (08:31→20:33)
[2024-08-14] MEDS: COZAAR 50 MG PO ×2 (08:31→20:46)
[2024-08-14] MEDS: NORVASC 5 MG PO ×2 (08:31→20:46)
[2024-08-14] MEDS: COLACE 100 MG PO ×2 (08:31→20:29)
[2024-08-14 08:32] LABS: Glucose - Point of Care 192 mg/dl (70-99)
[2024-08-14] MEDS: SENOKOT 17.2 MG PO ×2 (08:32→20:30)
[2024-08-14] MEDS: HEPARIN 5000 UNITS SC ×2 (08:32→20:31)
[2024-08-14] MEDS: APRESOLINE 25 MG PO ×2 (08:32→20:45)
[2024-08-14] MEDS: PROTONIX 40 MG PO (08:33)
[2024-08-14] MEDS: PLAVIX 75 MG PO (08:33)
[2024-08-14] MEDS: ROXICODONE 5 MG PO (08:35)
[2024-08-14] MEDS: TRANDATE 100 MG PO (08:36)
[2024-08-14] MEDS: PLETAL 50 MG PO ×2 (08:36→20:31)
[2024-08-14] MEDS: NOVOLOG FLEXPEN-LOW RESISTANCE 1 UNITS SC (08:56)
[2024-08-14] MEDS: NOVOLOG FLEXPEN 3 UNITS SC ×3 (08:57→17:32)
[2024-08-14] MEDS: MIRALAX 17 GRAMS PO (08:57)
[2024-08-14] MEDS: NSS IV (10:33)
[2024-08-14 12:04] LABS: Glucose - Point of Care 200 mg/dl (70-99)
[2024-08-14 12:06] VITALS: BP 135/48
[2024-08-14] MEDS: NOVOLOG FLEXPEN-LOW RESISTANCE 2 UNITS SC (12:26)
--- NOTE | 2024-08-14 12:47 | W.PN.HOSP.TC ---
Today's Communication/Plan
-
see A/P
Assessment / Plan
Assessment / Plan
HPI: 83-year-old female p/w fall. She stated that she usually has generalized weakness of her knees and then went down.
CT-proximal right tibia fracture with lines extending to the medial tibial metaphysis and to the lateral epiphysis anteriorly and posteriorly.
A/P:
# Proximal Right tibia fracture-likely traumatic and osteoporotic
Orthopedic on board, recc Nonweightbearing right lower extremity with knee immobilizer
s/p Open reduction internal fixation right proximal metaphyseal tibia fracture, open reduction total fixation of tibial tuberosity fracture on 08/13/2024
Pain control with Tylenol and Tramadol
Noted vit D level high at 82
DVT ppx with HSQ
PT OT eval
# Acute postop anemia, blood loss from OR
Hgn 7.6 today from 9.5
Monitor Hgb. Daughter informed that they would like to avoid transfusion if possible (pt contracted hepatitis from blood transfusion in the distant past)
for now, cont PO iron
# Multidrug-resistant hypertension
continue amlodipine, hydralazine 25 mg twice daily, labetalol 1 mg daily, losartan 50 mg twice daily
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
# Hyperlipidemia
continue statin
# Anemia-likely secondary to CKD.
Continue p.o. iron.
# IDDM
Hold Jardiance
resumed insulin, Lantus 7 units HS, Apart 3 units AC
cover with ISS
# CKD stage III
Cr 1.8 at baseline
# History of colon cancer with surgery in 2008 at [place].
# History of Hepatitis C status posttreatment.
# Dementia
ST Memory loss per daughter
Continue Aricept.
# Peripheral vascular disease with history of prior stents. Stent placed in 2 stets in left leg [place] 2017
resumed WARP CLAMPER plavix and cilostazol 08/14
continue statin
# Diabetic Neuropathy on Duloxetine.
# Glaucoma
DVT prophylaxis- restart HSQ 08/14
Full code
DW daughter on the phone. Extensive discission
total 51 min
Anticipated Discharge: 24 - 48 hours
Subjective/Interval History
-
Date of Service: August 14, 2024
Objective Data
-
Labs:
Laboratory Results
08/14/24
04:54
WBC 8.0
Hgb 7.6 L
Hct 24.0 L
Plt Count 159
Sodium 141
Potassium 5.1
Chloride 107
Carbon Dioxide 28
BUN 49 H
Creatinine 1.7 H
Glucose 194 H
Calcium 8.1 L
Vital Signs:
Vital Signs
Temp Pulse Resp BP Pulse Ox
36.6 C 57 16 135/48 93
08/14/24 12:06 08/14/24 12:06 08/14/24 12:06 08/14/24 12:06 08/14/24 12:06
I&O
08/13/24 08/14/24 08/15/24
06:59 06:59 06:59
Intake Total 1080 / 1080 2180 / 2180
Output Total 400 / 400
Balance 1080 / 1080 1780 / 1780
Review of Systems
-
Unable to obtain full review of systems at this time due to: Language Barrier
All other systems: Reviewed and negative
Physical Exam
-
General: Well Developed, Well Nourished, No Apparent Distress, Comfortable and Conversant; Negative Respiratory Distress
HEENT: Normocephalic, Atraumatic, Nose Appears Normal and Ears Appear Normal; Negative Oxygen
Respiratory: Clear to Auscultation and Non Labored Respirations; Negative Accessory Resp Muscle Use
Cardiac: Regular Rhythm and S1/S2
GI: Soft, Nontender, Nondistended and Normal Bowel Sounds
Skin: Warm and Dry
Neuro: Awake, Alert and Oriented
Psych: Calm
Data Reviewed
-
Diagnostic Radiology: Image personally visualized and interpreted and Report Reviewed by me
Labs: Labs Reviewed by me
--- NOTE | 2024-08-14 14:03 | W.PN.ORTHO ---
Today's Communication / Plan
-
83 yo F POD 1 s/p ORIF R prox tib metaphyseal fracture, operative repair tibial tuberosity fracture
NWB RLE in KI
PT/OT
pain control
DVT ppx: lovenox renally dosed daily X 28 days
F/u outpatient in 2 weeks for planned removal of everett, transition to [facility]
Subjective
.
.:
Patient resting comfortably in bed with family at bedside. No acute overnight events. Complaining of intermittent pain but comfortable currently
Vital Signs and Labs
.
Vital Signs and Labs:
Lab Results
08/14/24 04:54
08/14/24 04:54
Temp Pulse Resp BP Pulse Ox
97.8 F 57 16 135/48 93
08/14/24 12:06 08/14/24 12:06 08/14/24 12:06 08/14/24 12:06 08/14/24 12:06
Physical Exam
-
MSK LLE
Dressing CDI
KI in place
+ehl.fhl, ankle df/pf
SILT in all distributions distally
BCR
--- NOTE | 2024-08-14 14:40 | CM ---
CM reviewed pt with therapy- SNF recs
Bedside meeting with pt and dtr
Referral sent to [facility] for their [place] capabilities per family request
Referral pending- pt will require [employer] auth
Discharge Disposition- [facility] pending [employer] auth
[2024-08-14 14:41] VITALS: BP 125/46; PULSE 58; O2SAT 93
[2024-08-14 15:50] VITALS: BP 120/42
[2024-08-14 17:30] LABS: Glucose - Point of Care 255 mg/dl (70-99)
[2024-08-14] MEDS: NOVOLOG FLEXPEN-LOW RESISTANCE 3 UNITS SC (17:31)
[2024-08-14] MEDS: MILK OF MAGNESIA 30 ML PO (20:30)
[2024-08-14] MEDS: ULTRAM 25 MG PO (20:44)
[2024-08-14 21:16] LABS: Glucose - Point of Care 341 mg/dl (70-99)
[2024-08-14] MEDS: CRESTOR 5 MG PO (22:17)
[2024-08-14] MEDS: CYMBALTA DELAYED RELEASE 20 MG PO (22:17)
[2024-08-14] MEDS: EVISTA 60 MG PO (22:17)
[2024-08-14] MEDS: ARICEPT 5 MG PO (22:17)
[2024-08-14] MEDS: ZYRTEC 5 MG PO (22:18)
[2024-08-14] MEDS: NOVOLOG FLEXPEN 5 UNITS SC (22:19)
[2024-08-14] MEDS: LANTUS 0.07 UNITS SC (22:20)
[2024-08-14 23:00] VITALS: BP 155/50
[2024-08-15] VITALS (7 sets, daily range): BP systolic 118–155; BP diastolic 49–67; PULSE 68
[2024-08-15] MEDS: TYLENOL PO (01:11)
[2024-08-15] MEDS: TYLENOL 650 MG PO ×6 (01:27→19:56)
[2024-08-15] MEDS: ULTRAM 25 MG PO ×3 (03:40→17:59)
[2024-08-15] MEDS: COLACE 100 MG PO ×2 (07:44→19:54)
[2024-08-15] MEDS: APRESOLINE 25 MG PO ×2 (07:44→19:55)
[2024-08-15] MEDS: MIRALAX 17 GRAMS PO (07:44)
[2024-08-15] MEDS: COZAAR 50 MG PO ×2 (07:47→19:55)
[2024-08-15] MEDS: NORVASC 5 MG PO ×2 (07:47→19:54)
[2024-08-15] MEDS: PEPCID 20 MG PO (07:47)
[2024-08-15] MEDS: PROTONIX 40 MG PO (07:47)
[2024-08-15] MEDS: SENOKOT 17.2 MG PO ×2 (07:47→19:54)
[2024-08-15] MEDS: FEOSOL 325 MG PO ×2 (07:47→19:53)
[2024-08-15] MEDS: TRANDATE 100 MG PO (07:47)
[2024-08-15] MEDS: PLAVIX 75 MG PO (07:48)
[2024-08-15] MEDS: PLETAL 50 MG PO ×2 (07:48→19:54)
[2024-08-15] MEDS: HEPARIN 5000 UNITS SC ×2 (07:48→19:55)
[2024-08-15 08:35] LABS: Glucose - Point of Care 130 mg/dl (70-99)
[2024-08-15] MEDS: NOVOLOG FLEXPEN-LOW RESISTANCE SC ×2 (08:45→13:26)
[2024-08-15 09:27] LABS: Hematocrit 22.4 % (37.0-47.0); Mean Corp Hgb Conc. 31.3 g/dL (33.0-37.0); Mean Corpuscular Hgb 29.9 pg (27.0-31.0); Mean Corpuscular Volume 95.7 fL (81.0-99.0); Mean Platelet Volume 10.1 fL (7.4-10.4); Platelet Count 154 10^3/uL (130-400); Red Blood Cell Count 2.34 10^6/uL (4.20-5.40); White Blood Cell Count 6.6 10^3/uL (4.8-10.8)
[2024-08-15] MEDS: NOVOLOG FLEXPEN 3 UNITS SC (09:48)
[2024-08-15 10:02] LABS: Blood Urea Nitrogen 47 mg/dl (7-17); Calcium 8.1 mg/dl (8.4-10.2); Carbon Dioxide 28 mmol/L (22-30); Chloride 109 mmol/L (98-107); Estimated Creatinine Clearance 23 ml/min; Glucose 127 mg/dl (70-99); Sodium 142 mmol/L (135-145); eGFR 34.79
[2024-08-15 12:53] LABS: Glucose - Point of Care 316 mg/dl (70-99)
--- NOTE | 2024-08-15 13:04 | W.PN.HOSP.TC ---
Today's Communication/Plan
-
Await decision re Transfusion
Restart torsemide and SGLT2 inhibitor
Increase insulin
PT OT
Rehab placement
Assessment / Plan
Assessment / Plan
HPI: 83-year-old female p/w fall. She stated that she usually has generalized weakness of her knees and then went down.
CT-proximal right tibia fracture with lines extending to the medial tibial metaphysis and to the lateral epiphysis anteriorly and posteriorly.
CVS: S1-S2 normal
Chest: CTA B/L
Abdomen: Soft, NT / Bowel sounds present
Extremities: Right knee on knee immobilizer
PLATE SENSITIZER: Non focal exam
A/P:
# Proximal Right tibia fracture-likely traumatic and osteoporotic
Orthopedic on board, recc Nonweightbearing right lower extremity with knee immobilizer
s/p Open reduction internal fixation right proximal metaphyseal tibia fracture, open reduction total fixation of tibial tuberosity fracture on 08/13/2024
Pain control with Tylenol and Tramadol
Noted vit D level high at 82
DVT ppx with HSQ
PT OT eval
# Acute postop anemia, blood loss from OR
Hgn 7.0 today from 9.5
Monitor Hgb. Daughter informed that they would like to avoid transfusion if possible (pt contracted hepatitis from blood transfusion in the distant past)
Iron and B12 levels are adequate
I reviewed benefits and risks of blood transfusion with patient's daughter. Patient stated that if absolutely needed she will take blood. Daughter wants to discuss this further with Dr. Montana Vazquez who is her oncologist and also with the patient
and will sign the consent if okay.
I offered to transfer her to [place] for their bloodless program but daughter declined she does not want him to be transferred anywhere.
# Multidrug-resistant hypertension
continue amlodipine, hydralazine 25 mg twice daily, labetalol 1 mg daily, losartan 50 mg twice daily
Resume torsemide
# Hyperlipidemia
continue statin
# Anemia-likely secondary to CKD.
Continue p.o. iron.
# IDDM -hemoglobin A1c 7.5
Sugars are running high
Change diet to diabetic diet
Restart SGLT2 inhibitor-Farxiga instead of Jardiance
Increase Lantus to 8 units and increase aspart to 5 units AC
cover with ISS
# CKD stage III
Cr 1.8 at baseline
# History of colon cancer with surgery in 2008 at [place].
# History of Hepatitis C status posttreatment.
# Dementia
ST Memory loss per daughter
Continue Aricept.
# Peripheral vascular disease with history of prior stents. Stent placed in 2 stets in left leg [place] 2017
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
continue statin
# Diabetic Neuropathy on Duloxetine.
# Glaucoma
#DVT prophylaxis- On HSQ 08/14
Full code
DW daughter on the phone re anemia . She will get back to me
D/W RN
I left blood consent at bedside. Once they decide she can sign it. Benefits and risks discussed.
time spent over 50 min
Anticipated Discharge: Within 24 hours
Subjective/Interval History
-
Date of Service: August 15, 2024
Objective Data
-
Labs:
Laboratory Results
08/15/24
09:02
WBC 6.6
Hgb 7.0 L
Hct 22.4 L
Plt Count 154
Sodium 142
Potassium 5.0
Chloride 109 H
Carbon Dioxide 28
BUN 47 H
Creatinine 1.5 H
Glucose 127 H
Calcium 8.1 L
Vital Signs:
Vital Signs
Temp Pulse Resp BP Pulse Ox
98.8 F 65 16 150/56 96
08/15/24 07:15 08/15/24 07:44 08/15/24 07:15 08/15/24 07:44 08/15/24 07:15
I&O
08/14/24 08/15/24 08/16/24
06:59 06:59 06:59
Intake Total 2180 / 2180 960 / 960
Output Total 400 / 400 300 / 300
Balance 1780 / 1780 660 / 660
[2024-08-15] MEDS: NOVOLOG FLEXPEN SC (13:19)
[2024-08-15] MEDS: FARXIGA 10 MG PO (13:39)
[2024-08-15] MEDS: DEMADEX 10 MG PO (13:39)
[2024-08-15] MEDS: MILK OF MAGNESIA 30 ML PO (13:39)
[2024-08-15] MEDS: NOVOLOG FLEXPEN 7 UNITS SC (13:40)
--- NOTE | 2024-08-15 15:38 | CM ---
Reviewed the chart notes and submitted auth request for SNF/rehab via [employer].
[facility] NPI #[id number]
Dr. Hannah Reddy NPI# [id number]
Approved 08/16-08/22; [facility]; Certification No. [id number]
Plan: Discharge to [facility] when medically stable.
--- NOTE | 2024-08-15 16:11 | W.PN.UPDATE ---
Update Note
Progress Note Update
I called patient's daughter back.
She spoke to their lead installer and decided to go with blood transfusion.
She will be here at 7:30 PM to sign consent
Will order blood.
Heme test stools negative. Will discontinue further heme test.
total time spent over 55 min
--- NOTE | 2024-08-15 16:47 | PTCARENOTE ---
1 unit PRBCs ordered for hgb of 7.0, awaiting arrival of daughter to sign consent form for blood transfusion.
[2024-08-15 17:12] LABS: Glucose - Point of Care 156 mg/dl (70-99)
[2024-08-15] MEDS: NOVOLOG FLEXPEN-LOW RESISTANCE 1 UNITS SC (18:14)
[2024-08-15] MEDS: NOVOLOG FLEXPEN 5 UNITS SC (18:14)
[2024-08-15] MEDS: ROXICODONE 5 MG PO (20:55)
[2024-08-15 21:53] LABS: Glucose - Point of Care 209 mg/dl (70-99)
[2024-08-15] MEDS: ZYRTEC 5 MG PO (22:13)
[2024-08-15] MEDS: CYMBALTA DELAYED RELEASE 20 MG PO (22:13)
[2024-08-15] MEDS: CRESTOR 5 MG PO (22:14)
[2024-08-15] MEDS: EVISTA 60 MG PO (22:14)
[2024-08-15] MEDS: ARICEPT 5 MG PO (22:14)
[2024-08-15] MEDS: LANTUS 0.05 UNITS SC (23:00)
[2024-08-16 00:46] VITALS: BP 159/55
--- NOTE | 2024-08-16 00:48 | PTCARENOTE ---
Pt completed infusion of 1unit RBC. tolerated well. Pt sleeping callbell within reach
[2024-08-16] MEDS: TYLENOL PO ×2 (04:00)
[2024-08-16 07:51] LABS: Glucose - Point of Care 151 mg/dl (70-99)
[2024-08-16 08:12] VITALS: BP 126/67
[2024-08-16 08:44] LABS: % Basophils 0.2 % (0-2); % Eosinophils 2.2 % (0-6); % Immature Granulocytes 0.5 % (0-0.5); % Monocytes 7.2 % (1.7-9.3); % Neutrophils 68.9 % (42.2-75.2); Absolute Eosinophils 0.1 10^3/uL (0-0.7); Absolute Lymphocytes 1.2 10^3/uL (1.2-3.4); Absolute Monocytes 0.4 10^3/uL (0.1-0.6); Hematocrit 27.3 % (37.0-47.0); Hemoglobin 8.9 g/dL (12.0-16.0); Mean Corp Hgb Conc. 32.6 g/dL (33.0-37.0); Mean Corpuscular Hgb 29.5 pg (27.0-31.0); Mean Corpuscular Volume 90.4 fL (81.0-99.0); Mean Platelet Volume 9.8 fL (7.4-10.4); Nucleated Red Blood Cells % 0 %; Platelet Count 163 10^3/uL (130-400); Red Blood Cell Count 3.02 10^6/uL (4.20-5.40); Red Cell Dist. Width 16.1 % (11.5-14.5); White Blood Cell Count 5.8 10^3/uL (4.8-10.8)
[2024-08-16] MEDS: COLACE 100 MG PO (08:45)
[2024-08-16] MEDS: NORVASC 5 MG PO (08:45)
[2024-08-16] MEDS: FEOSOL 325 MG PO (08:45)
[2024-08-16] MEDS: TYLENOL 650 MG PO ×2 (08:46→11:08)
[2024-08-16] MEDS: MIRALAX 17 GRAMS PO (08:46)
[2024-08-16] MEDS: PLETAL 50 MG PO (08:46)
[2024-08-16] MEDS: APRESOLINE 25 MG PO (08:46)
[2024-08-16] MEDS: PROTONIX 40 MG PO (08:46)
[2024-08-16] MEDS: TRANDATE 100 MG PO (08:46)
[2024-08-16] MEDS: FARXIGA 10 MG PO (08:46)
[2024-08-16] MEDS: NOVOLOG FLEXPEN-LOW RESISTANCE 1 UNITS SC (08:47)
[2024-08-16] MEDS: PLAVIX 75 MG PO (08:47)
[2024-08-16] MEDS: SENOKOT 17.2 MG PO (08:47)
[2024-08-16] MEDS: HEPARIN 5000 UNITS SC (08:47)
[2024-08-16] MEDS: COZAAR 50 MG PO (08:47)
[2024-08-16] MEDS: NOVOLOG FLEXPEN 5 UNITS SC ×2 (08:48→12:34)
[2024-08-16] MEDS: ULTRAM 25 MG PO (08:54)
--- NOTE | 2024-08-16 10:27 | W.PN.HOSP.TC ---
Today's Communication/Plan
-
discharge
Assessment / Plan
Assessment / Plan
HPI: 83-year-old female p/w fall. She stated that she usually has generalized weakness of her knees and then went down.
CT-proximal right tibia fracture with lines extending to the medial tibial metaphysis and to the lateral epiphysis anteriorly and posteriorly.
CVS: S1-S2 normal
Chest: CTA B/L
Abdomen: Soft, NT / Bowel sounds present
Extremities: Right knee on knee immobilizer
Right foot- mild old ecchymosis dorsum , small skin break on the lateral aspect of right 5 th metataral
A/P:
# Proximal Right tibia fracture-likely traumatic and osteoporotic
Orthopedic on board, recc Nonweightbearing right lower extremity with knee immobilizer
s/p Open reduction internal fixation right proximal metaphyseal tibia fracture, open reduction total fixation of tibial tuberosity fracture on 08/13/2024
Pain control with Tylenol and Tramadol
Noted vit D level high at 82
DVT ppx with HSQ
PT OT eval
X-ray of the foot reviewed no fractures. Has osteoarthritis
Tramadol is not working really well for her pain therefore will use oxycodone
# Acute postop anemia, blood loss from OR
Hgn 8.9 after transfusion
Heme test was neg yesterday
# Multidrug-resistant hypertension
continue amlodipine, hydralazine 25 mg twice daily, labetalol 1 mg daily, losartan 50 mg twice daily
Resumed torsemide
# Hyperlipidemia
continue statin
# Anemia-likely secondary to CKD.
Continue p.o. iron.
# IDDM -hemoglobin A1c 7.5
Sugars are better
Change diet to diabetic diet
Restarted SGLT2 inhibitor
Increase Lantus to 9 units and keep aspart to 5 units AC
cover with ISS
# CKD stage III
# History of colon cancer with surgery in 2008 at [facility].
# History of Hepatitis C status posttreatment.
# Dementia
ST Memory loss per daughter
Continue Aricept.
# Peripheral vascular disease with history of prior stents. Stent placed in 2 stets in left leg [place] 2017
resumed [employer] plavix and cilostazol 08/14
continue statin
# Diabetic Neuropathy on Duloxetine.
# Glaucoma
#DVT prophylaxis- On HSQ
Full code
D/W Case management
D/W RN
Discussed with the patient's daughter regarding discharge plans. Patient should get repeat labs at the rehab
More than 30 minutes spent in discharge including
Final examination of the patient
Summarizing hospital stay
Instructions for continuing care to all relevant caregivers
Preparation of discharge records, prescriptions, and referral forms
Total time spent (in minutes): 36 min
Anticipated Discharge: Today
Subjective/Interval History
-
Date of Service: August 16, 2024
Objective Data
-
Labs:
Laboratory Results
08/16/24
08:24
WBC 5.8
Hgb 8.9 L D
Hct 27.3 L
Plt Count 163
Vital Signs:
Vital Signs
Temp Pulse Resp BP Pulse Ox
97.9 F 74 18 126/67 97
08/16/24 08:12 08/16/24 08:12 08/16/24 08:12 08/16/24 08:12 08/16/24 08:12
I&O
08/15/24 08/16/24 08/17/24
06:59 06:59 06:59
Intake Total 960 / 960 1050 / 1050
Output Total 300 / 300
Balance 660 / 660 1050 / 1050
[2024-08-16 11:47] LABS: Glucose - Point of Care 251 mg/dl (70-99)
--- NOTE | 2024-08-16 11:58 | CM ---
Addendum entered by Vilma Rider RN 08/16/24 14:57:
Patient's daughter updated on 1530 pick-up time.
Original Note:
Reviewed the chart notes and spoke with the patient's daughter Keke via telephone. IMM reviewed and placed on chart. The patient will be going to [facility]. CM continues to be available to patient/family and is monitoring medical
plan for needs at discharge.
Plan: Discharge to [facility] when medically stable.
Call report to: [phone], ask for [facility]
Fax report to: [phone]
Medical necessity and transport form on chart.
[2024-08-16] MEDS: NOVOLOG FLEXPEN-LOW RESISTANCE 3 UNITS SC (12:33)
[2024-08-16] MEDS: ROXICODONE 5 MG PO (13:50)
--- NOTE | 2024-08-16 14:14 | W.DS.TRANS ---
DC Summary - [employer]
-
Discharge Instructions:
Discharge Diagnosis/Procedures Proximal right tibia fracture status post ORIF
on 08/13/2024
Acute postop blood loss anemia on chronic anemia
Multidrug-resistant hypertension
Hyperlipidemia
Diabetes
CKD stage III
History of colon cancer
History of hepatitis C with treatment
Dementia
Peripheral vascular disease
Diabetic neuropathy
Diet Diabetic, Carb Controlled,2 Gram Sodium
Activity Do not bear weight R leg
Driving Restrictions No driving
Other Services PT,OT
Instructions:
Stand-Alone Forms:
Changes to Home Medications: Yes
Discharge Medications:
DC Medications w/original date entered in [place]
amlodipine 5 mg tablet 5 mg PO BID Blood Pressure 08/10/24
calcium 500 mg (as carbonate)-vitamin D3 5 mcg (200 unit) tablet (Calcium 500 + D) 1 tab PO BID Supplement 08/10/24
cholecalciferol (vitamin D3) 125 mcg (5,000 unit) tablet (Vitamin D3) 125 mcg PO DAILY Supplement 08/10/24
cilostazol 50 mg tablet 50 mg PO BID peripheral artery disease 08/10/24
donepezil 5 mg tablet 5 mg PO HS memory/cognition 08/10/24
duloxetine 20 mg capsule,delayed release 20 mg PO HS depression/pain 08/10/24
empagliflozin 10 mg tablet (Jardiance) 10 mg PO DAILY diabetes 08/10/24
ferrous sulfate 325 mg (65 mg iron) tablet 325 mg PO BID Supplement 08/10/24
fluticasone propionate 50 mcg/actuation nasal spray,suspension 1 spray intranasal DAILYPRN PRN congestion 08/10/24
hydralazine 25 mg tablet 25 mg PO BID Blood Pressure 08/10/24
insulin glargine 100 unit/mL subcutaneous solution (Lantus U-100 Insulin) 5 - 7 units SC HS Diabetes 08/10/24
labetalol 100 mg tablet 100 mg PO DAILY Blood Pressure 08/10/24
levocetirizine 5 mg tablet 5 mg PO DAILYPRN PRN allergies 08/10/24
lidocaine 4 % topical patch 1 patch topical DAILYPRN PRN legs/back 08/10/24
losartan 50 mg tablet 50 mg PO BID Blood Pressure 08/10/24
raloxifene 60 mg tablet 60 mg PO HS osteoporosis 08/10/24
rosuvastatin 5 mg tablet 5 mg PO HS High Cholesterol 08/10/24
torsemide 10 mg tablet 10 mg PO Q48H Fluid Retention/Swelling 08/10/24
acetaminophen 325 mg tablet 650 mg (2 x 325 mg) PO Q4HPRN PRN mild pain #0 tabs 08/16/24
ascorbic acid (vitamin C) 500 mg tablet (Vitamin C) 500 mg PO Q48H Supplement #0 tabs 08/16/24
clopidogrel 75 mg tablet 75 mg PO DAILY Blood clot prevention/tx #30 tabs 08/16/24
docusate sodium 100 mg capsule 100 mg PO BID Constipation #0 caps 08/16/24
famotidine 20 mg tablet 20 mg PO Q48H Gastrointestinal Issue #0 tabs 08/16/24
heparin (porcine) 5,000 unit/mL injection solution 5,000 unit SC Q12 Blood clot prevention/tx #0 mL 08/16/24
insulin aspart (niacinamide) (U-100) 100 unit/mL subcutaneous solution (Fiasp U-100 Insulin) 5 unit SC AC Diabetes #0 mL 08/16/24
oxycodone 5 mg tablet 5 mg PO Q6HPRN PRN moderate pain #10 tabs 08/16/24
pantoprazole 40 mg tablet,delayed release 40 mg PO DAILY Gastrointestinal issue #30 tabs 08/16/24
polyethylene glycol 3350 17 gram oral powder packet 17 g PO DAILY Constipation #0 ea 08/16/24
sennosides 8.6 mg tablet (Senna Laxative) 17.2 mg (2 x 8.6 mg) PO BID Constipation #0 tabs 08/16/24
Home Medication Changes
new
heparin (porcine) 5,000 unit/mL injection solution 5,000 unit SC Q12 Blood clot prevention/tx #0 mL 08/16/24
oxycodone 5 mg tablet 5 mg PO Q6HPRN PRN moderate pain #10 tabs 08/16/24
Famotidine dose changed
Pending Results: No
--- NOTE | 2024-08-16 14:17 | W.DS.TRANS ---
Addendum entered and electronically signed by Fabio Pabon MD 08/16/24 17:00:
Dictation- [id number]
Original Note:
DC Summary - [employer]
-
Discharge Instructions:
Discharge Diagnosis/Procedures Proximal right tibia fracture status post ORIF
on 08/13/2024
Acute postop blood loss anemia on chronic anemia
Multidrug-resistant hypertension
Hyperlipidemia
Diabetes
CKD stage III
History of colon cancer
History of hepatitis C with treatment
Dementia
Peripheral vascular disease
Diabetic neuropathy
Diet Diabetic, Carb Controlled,2 Gram Sodium
Activity Do not bear weight R leg
Driving Restrictions No driving
Blood Work CBC BMP in 2 days
Other Services PT,OT
Instructions:
Stand-Alone Forms:
Changes to Home Medications: Yes
Discharge Medications:
DC Medications w/original date entered in [facility]
amlodipine 5 mg tablet 5 mg PO BID Blood Pressure 08/10/24
calcium 500 mg (as carbonate)-vitamin D3 5 mcg (200 unit) tablet (Calcium 500 + D) 1 tab PO BID Supplement 08/10/24
cilostazol 50 mg tablet 50 mg PO BID peripheral artery disease 08/10/24
donepezil 5 mg tablet 5 mg PO HS memory/cognition 08/10/24
duloxetine 20 mg capsule,delayed release 20 mg PO HS depression/pain 08/10/24
empagliflozin 10 mg tablet (Jardiance) 10 mg PO DAILY diabetes 08/10/24
ferrous sulfate 325 mg (65 mg iron) tablet 325 mg PO BID Supplement 08/10/24
fluticasone propionate 50 mcg/actuation nasal spray,suspension 1 spray intranasal DAILYPRN PRN congestion 08/10/24
hydralazine 25 mg tablet 25 mg PO BID Blood Pressure 08/10/24
insulin glargine 100 unit/mL subcutaneous solution (Lantus U-100 Insulin) 5 - 7 units SC HS Diabetes 08/10/24
labetalol 100 mg tablet 100 mg PO DAILY Blood Pressure 08/10/24
levocetirizine 5 mg tablet 5 mg PO DAILYPRN PRN allergies 08/10/24
lidocaine 4 % topical patch 1 patch topical DAILYPRN PRN legs/back 08/10/24
losartan 50 mg tablet 50 mg PO BID Blood Pressure 08/10/24
raloxifene 60 mg tablet 60 mg PO HS osteoporosis 08/10/24
rosuvastatin 5 mg tablet 5 mg PO HS High Cholesterol 08/10/24
torsemide 10 mg tablet 10 mg PO Q48H Fluid Retention/Swelling 08/10/24
acetaminophen 325 mg tablet 650 mg (2 x 325 mg) PO Q4HPRN PRN mild pain #0 tabs 08/16/24
ascorbic acid (vitamin C) 500 mg tablet (Vitamin C) 500 mg PO Q48H Supplement #0 tabs 08/16/24
clopidogrel 75 mg tablet 75 mg PO DAILY Blood clot prevention/tx #30 tabs 08/16/24
docusate sodium 100 mg capsule 100 mg PO BID Constipation #0 caps 08/16/24
famotidine 20 mg tablet 20 mg PO Q48H Gastrointestinal Issue #0 tabs 08/16/24
heparin (porcine) 5,000 unit/mL injection solution 5,000 unit SC Q12 Blood clot prevention/tx #0 mL 08/16/24
insulin aspart (niacinamide) (U-100) 100 unit/mL subcutaneous solution (Fiasp U-100 Insulin) 5 unit SC AC Diabetes #0 mL 08/16/24
oxycodone 5 mg tablet 5 mg PO Q6HPRN PRN moderate pain #10 tabs 08/16/24
pantoprazole 40 mg tablet,delayed release 40 mg PO DAILY Gastrointestinal issue #30 tabs 08/16/24
polyethylene glycol 3350 17 gram oral powder packet 17 g PO DAILY Constipation #0 ea 08/16/24
sennosides 8.6 mg tablet (Senna Laxative) 17.2 mg (2 x 8.6 mg) PO BID Constipation #0 tabs 08/16/24
Home Medication Changes
new
heparin (porcine) 5,000 unit/mL injection solution 5,000 unit SC Q12 Blood clot prevention/tx #0 mL 08/16/24
oxycodone 5 mg tablet 5 mg PO Q6HPRN PRN moderate pain #10 tabs 08/16/24
Famotidine dose changed
Pending Results: No
[2024-08-16 15:00] VITALS: BP 146/50
== END 2024-08-16 16:30 | DRG 493 ==
LOC: 2 SOUTH 10:31
PROVIDERS: Internal Medicine; Physician Assistant; ADMITTING PHYSICIAN Internal Medicine; ATTENDING PHYSICIAN Hospitalist; CONSULT PHYSICIAN Orthopaedic Surgery; EMERGENCY PHYSICIAN Emergency Medicine; FAMILY PHYSICIAN Internal Medicine
PROC: 0QSG04Z Reposition Right Tibia with Internal Fixation Device, Open Approach (ICD-10-PCS; 2024-08-13)
PROC: 30233N1 Transfusion of Nonautologous Red Blood Cells into Peripheral Vein, Percutaneous Approach (ICD-10-PCS; 2024-08-15)
DX: M80.061A Age-related osteoporosis with current pathological fracture, right lower leg, initial encounter for fracture (principal); D62 Acute posthemorrhagic anemia; N18.4 Chronic kidney disease, stage 4 (severe); E11.51 Type 2 diabetes mellitus with diabetic peripheral angiopathy without gangrene; I12.9 Hypertensive chronic kidney disease with stage 1 through stage 4 chronic kidney disease, or unspecified chronic kidney disease; E11.22 Type 2 diabetes mellitus with diabetic chronic kidney disease; E78.00 Pure hypercholesterolemia, unspecified; E11.40 Type 2 diabetes mellitus with diabetic neuropathy, unspecified; I1A.0 Resistant hypertension; D63.1 Anemia in chronic kidney disease; F03.90 Unspecified dementia, unspecified severity, without behavioral disturbance, psychotic disturbance, mood disturbance, and anxiety; Z95.820 Peripheral vascular angioplasty status with implants and grafts; Z91.040 Latex allergy status; Z85.038 Personal history of other malignant neoplasm of large intestine; Z79.82 Long term (current) use of aspirin; Z79.02 Long term (current) use of antithrombotics/antiplatelets; Z79.4 Long term (current) use of insulin; Z79.899 Other long term (current) drug therapy; W18.30XA Fall on same level, unspecified, initial encounter; Y92.009 Unspecified place in unspecified non-institutional (private) residence as the place of occurrence of the external cause
CPT/HCPCS: 29505; 72110; 73564; 73590; 73620; 73630; 73700; 76000; 80048; 82306; 82607; 82728; 82962; 83036; 83540; 83550; 85025; 85027; 86850; 86900; 86901; 86920; 87070; 93005; 97163; 97164; 97167; 97530; 97535; 99285; C1713; P9016

== ENCOUNTER → 2025-06-13 09:26 | Outpatient (REF) | payer MEDICARE, OTHER, SELFPAY | LOC: HWRAD 09:26 | PROVIDERS: ATTENDING PHYSICIAN Specialist; FAMILY PHYSICIAN Internal Medicine | DX: N17.9 Acute kidney failure, unspecified (principal); N18.4 Chronic kidney disease, stage 4 (severe) | CPT/HCPCS: 76770 ==